=== PATIENT | male | born 1930 | race Caucasian/White ===

== ENCOUNTER → 2016-04-11 | Outpatient (REF) | payer MEDICARE ==
[~2016-04-11] MED LIST: ALBU83IN INH; AMLO5TAB2 PO; CEFT250T8 PO; CIPR500T89 PO; DULC5TAB PO; FINA5TAB2 PO; FINACRY PO; HYDR50TA2 PO; LEVA500T PO; MAALSUS8 PO; NEXI40CA PO; PRAV40TA PO; PRAV40TA2 PO; PYRI200T5 PO; RAMI10CA PO; RAMI25CA PO; SODI1TA PO; SYMB80INH INH; TAMS0.4C2 PO; TUMS500C PO; TYLE325T5 PO; VICO5TAB PO; VITA200016 PO
[2016-04-11 19:19] LABS: PERCENT SATURATION 32.6 % (19.7-37.4)
== END ==
LOC: M LAB REF 16:56
PROVIDERS: ATTEND Internal Medicine Nephrology
DX: D64.9 Anemia, unspecified (principal)

== ENCOUNTER → 2016-11-03 | Outpatient (REF) | payer MEDICARE ==
[~2016-11-03] MED LIST changes: +CIPR-249 PO; -CIPR500T89 PO; +LEVA1TAB2 PO; -LEVA500T PO; +PYRI1TAB5 PO; -PYRI200T5 PO
== END ==
LOC: M LAB REF 15:07
PROVIDERS: ATTEND Physician Assistant
DX: R30.0 Dysuria (principal)

== ENCOUNTER → 2016-11-09 | Outpatient (REF) | payer MEDICARE ==
[2016-11-09 14:13] LABS: OSMOLALITY URINE 384 MOSM/KG (500-800)
== END ==
LOC: M LAB REF 13:23
PROVIDERS: ATTEND Internal Medicine Nephrology
DX: E87.1 Hypo-osmolality and hyponatremia (principal)

== ENCOUNTER → 2017-02-12 | Outpatient (CLI) | payer MEDICARE ==
--- NOTE | 2017-02-12 11:32 | REP ---
Clinical: Chest pain. History of emphysema. Technique: PA and lateral. Comparison: 09/21/2014. 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 No obvious acute superimposed consolidation, effusion, or pneumothorax. Mediastinum and cardiac silhouette are stable and within normal limits. Skeletal structures demonstrate age-related osteopenia and degenerative changes. 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 No acute cardiopulmonary process identified. If the patient remains symptomatic consider chest CT for further investigation. Signed by Marshall Cornelius MD 02/12/2017 11:23 A
== END ==
LOC: M WUC 10:41
PROVIDERS: ATTEND Internal Medicine Pulmonary Disease
DX: J43.2 Centrilobular emphysema (principal)

== ENCOUNTER → 2017-03-01 | Outpatient (CLI) | payer MEDICARE ==
[2017-03-01 18:55] LABS: CALCIUM LEVEL 9.1 MG/DL (8.8-10.2); CREATININE FOR GFR 2.08 MG/DL (0.70-1.30); GLOMERULAR FILTRATION RATE 32.5 (>35); POTASSIUM SERUM 4.6 MEQ/L (3.5-5.1)
[2017-03-01 19:11] LABS: MEAN CORPUSCULAR HGB CONC 33.8 g/dl (32.0-36.5); MEAN CORPUSCULAR VOLUME 94.5 fl (80.0-96.0); PLATELET COUNT, AUTOMATED 164 10^3/uL (150-450); RED CELL DISTRIBUTION WIDTH 12.7 % (11.5-14.5); WHITE BLOOD COUNT 5.6 10^3/uL (4.0-10.0)
== END ==
LOC: M WUC 11:43
PROVIDERS: ATTEND Internal Medicine Cardiovascular Disease
DX: R06.02 Shortness of breath (principal)

== ENCOUNTER 2017-04-04 17:59 | Emergency (ER) | payer MEDICARE ==
[2017-04-04] MEDS: methylPREDNISolone INJ 125 MG/2 ML VIAL (J2930) IV (18:55)
[2017-04-04] MEDS: NS 1,000 ML IV (18:55)
[2017-04-04 18:57] LABS: BASO % 0.2 % (0.0-1.0); EOS # 0.2 10^3/uL (0.0-0.50); EOS % 4.5 % (0.0-3.0); HEMOGLOBIN 12.3 g/dl (14.0-18.0); IMMATURE GRANULOCYTE % 0.4 % (0-0); LYMPH # 0.7 10^3/uL (1.5-4.5); LYMPH % 12.7 % (24.0-44.0); MEAN CORPUSCULAR HEMOGLOBIN 31.9 pg (27.0-33.0); MEAN CORPUSCULAR HGB CONC 34.2 g/dl (32.0-36.5); MEAN CORPUSCULAR VOLUME 93.3 fl (80.0-96.0); MONO # 0.4 10^3/uL (0.0-0.8); MONO % 6.6 % (0.0-5.0); NEUTROPHILS % 75.6 % (36.0-66.0); PLATELET COUNT, AUTOMATED 135 10^3/uL (150-450); RED BLOOD COUNT 3.86 10^6/uL (4.30-6.10); RED CELL DISTRIBUTION WIDTH 13.1 % (11.5-14.5); WHITE BLOOD COUNT 5.3 10^3/uL (4.0-10.0)
[2017-04-04 19:08] LABS: ANION GAP 9 MEQ/L (8-16); BLOOD UREA NITROGEN 25 MG/DL (7-18); CALCIUM LEVEL 8.6 MG/DL (8.8-10.2); CARBON DIOXIDE LEVEL 28 MEQ/L (21-32); CHLORIDE LEVEL 98 MEQ/L (98-107); CPK CREATINE PHOSPHOKINASE 185 U/L (39-308); GLUCOSE, FASTING 113 MG/DL (83-110); POTASSIUM SERUM 3.9 MEQ/L (3.5-5.1); SODIUM LEVEL 135 MEQ/L (136-145); TROPONIN I 0.06 NG/ML (< 0.10)
[2017-04-04 19:09] LABS: CK-MB VALUE MASS 5.5 NG/ML (0.0-3.6); MB/CK RELATIVE INDEX 2.97 (< OR =4)
[2017-04-04] MEDS: IPRATROPIUM 0.5MG/ALBUTEROL 2.5MG INH SOL UD 3ML (DUONEB)(J7620) NEB ×2 (19:13→19:23)
[2017-04-04 19:27] LABS: ABG BASE EXCESS -2.1 (-2.0-2.0); ABG HCO3 21.7 MEQ/L (22.0-26.0); ABG O2 SATURATION 97.3 % (95.0-99.0); ABG PARTIAL PRESSURE CO2 34.3 mmHg (35.0-45.0); ABG PARTIAL PRESSURE O2 95.5 mmHg (75.0-100.0); ABG STANDARD HCO3 22.7 MEQ/L (22.0-26.0); ABG TOTAL CO2 22.8 MEQ/L (23.0-31.0); ALBUMIN 3.4 GM/DL (3.2-5.2); ALBUMIN/GLOBULIN RATIO 1.13 (1.00-1.93); ALKALINE PHOSPHATASE 80 U/L (45-117); ALT/SGPT 27 U/L (12-78); AST/SGOT 39 U/L (7-37); BILIRUBIN,DIRECT 0.2 MG/DL (0.0-0.2); BILIRUBIN,TOTAL 0.5 MG/DL (0.2-1.0); TOTAL PROTEIN 6.4 GM/DL (6.4-8.2)
== END 2017-04-04 20:29 | disposition home or self-care (01) ==
LOC: M ED 17:59
DX: J44.1 Chronic obstructive pulmonary disease with (acute) exacerbation (principal); I45.10 Unspecified right bundle-branch block; I44.0 Atrioventricular block, first degree; I10 Essential (primary) hypertension; E78.5 Hyperlipidemia, unspecified; N18.6 End stage renal disease; Z87.891 Personal history of nicotine dependence; Z82.49 Family history of ischemic heart disease and other diseases of the circulatory system; Z79.899 Other long term (current) drug therapy
CPT/HCPCS: J2930

== ENCOUNTER 2017-04-12 12:58 | Inpatient (IN) | payer MEDICARE ==
[2017-04-12] MEDS: NS 1,000 ML IV (13:17)
[2017-04-12] MEDS: IPRATROPIUM 0.5MG/ALBUTEROL 2.5MG INH SOL UD 3ML (DUONEB)(J7620) NEB ×5 (14:12→23:51)
[2017-04-12 14:43] LABS: BASO % 0.1 % (0.0-1.0); HEMATOCRIT 40.1 % (42.0-52.0); HEMOGLOBIN 13.4 g/dl (14.0-18.0); IMMATURE GRANULOCYTE # 0.1 10^3/uL (0-0); IMMATURE GRANULOCYTE % 0.7 % (0-0); LYMPH # 0.4 10^3/uL (1.5-4.5); LYMPH % 3.2 % (24.0-44.0); MEAN CORPUSCULAR HGB CONC 33.4 g/dl (32.0-36.5); MEAN CORPUSCULAR VOLUME 95.7 fl (80.0-96.0); MONO # 0.5 10^3/uL (0.0-0.8); MONO % 3.8 % (0.0-5.0); NEUTROPHILS # 11.5 10^3/uL (1.8-7.7); NEUTROPHILS % 92.2 % (36.0-66.0); PLATELET COUNT, AUTOMATED 152 10^3/uL (150-450); RED BLOOD COUNT 4.19 10^6/uL (4.30-6.10); RED CELL DISTRIBUTION WIDTH 14.2 % (11.5-14.5); WHITE BLOOD COUNT 12.5 10^3/uL (4.0-10.0)
[2017-04-12 14:51] LABS: VENOUS BASE EXCESS -0.8 (-2.0-2.0); VENOUS HCO3 25.3 MEQ/L (23.0-27.0); VENOUS O2 SATURATION 84.3 % (60.0-80.0); VENOUS PARTIAL PRESSURE CO2 47.3 mmHg (38.0-50.0); VENOUS PARTIAL PRESSURE O2 52.4 mmHg (30.0-50.0); VENOUS PH 7.346 UNITS (7.330-7.430); VENOUS STANDARD HCO3 23.5 MEQ/L; VENOUS TOTAL CO2 26.7 MEQ/L (24.0-28.0)
[2017-04-12 14:54] LABS: INR 1.07
[2017-04-12 15:25] LABS: ALBUMIN 3.5 GM/DL (3.2-5.2); ALBUMIN/GLOBULIN RATIO 1.21 (1.00-1.93); ALKALINE PHOSPHATASE 71 U/L (45-117); ALT/SGPT 58 U/L (12-78); AST/SGOT 42 U/L (7-37); BILIRUBIN,DIRECT 0.5 MG/DL (0.0-0.2); BILIRUBIN,TOTAL 1.1 MG/DL (0.2-1.0); TOTAL PROTEIN 6.4 GM/DL (6.4-8.2)
[2017-04-12 15:28] LABS: ANION GAP 8 MEQ/L (8-16); BLOOD UREA NITROGEN 47 MG/DL (7-18); CALCIUM LEVEL 8.8 MG/DL (8.8-10.2); CARBON DIOXIDE LEVEL 30 MEQ/L (21-32); CHLORIDE LEVEL 103 MEQ/L (98-107); CK-MB VALUE MASS 9.3 NG/ML (0.0-3.6); CPK CREATINE PHOSPHOKINASE 157 U/L (39-308); CREATININE FOR GFR 2.25 MG/DL (0.70-1.30); GLOMERULAR FILTRATION RATE 29.6 (>35); GLUCOSE, FASTING 179 MG/DL (83-110); MB/CK RELATIVE INDEX 5.92 (< OR =4); SODIUM LEVEL 141 MEQ/L (136-145); TROPONIN I 0.12 NG/ML (< 0.10)
[2017-04-12 15:44] LABS: LACTIC ACID SEPSIS PROTOCOL 2.5 MMOL/L (0.4-2.0)
[2017-04-12] MEDS ORDERED: LABETALOL HCL 100 MG/20 ML VIAL IV (16:31)
[2017-04-12] MEDS: ALBUTEROL SULFATE 2.5 MG/0.5 ML INH NEB SOLN INH (16:37)
[2017-04-12] MEDS: methylPREDNISolone INJ 125 MG/2 ML VIAL (J2930) IV (16:57)
[2017-04-12] MEDS ORDERED: ONDANSETRON 4MG/2ML VIAL (J2405) IV (19:30)
[2017-04-12 19:41] LABS: CK-MB VALUE MASS 8.2 NG/ML (0.0-3.6); CPK CREATINE PHOSPHOKINASE 140 U/L (39-308); MB/CK RELATIVE INDEX 5.85 (< OR =4); TROPONIN I 0.11 NG/ML (< 0.10)
[2017-04-12] MEDS: DIGOXIN INJ 0.5 MG/2 ML AMP (J1160) IV (19:52)
[2017-04-12] MEDS: TAMSULOSIN 0.4 MG CAP PO (23:03)
[2017-04-12] MEDS: APIXABAN 2.5 MG TAB (ELIQUIS) PO (23:04)
[2017-04-12] MEDS: FINASTERIDE 5 MG TAB PO (23:04)
[2017-04-12] MEDS: PRAVASTATIN 20 MG TAB PO (23:04)
[2017-04-12] MEDS: guaiFENesin ER 600 MG TAB PO (23:04)
[2017-04-12 23:39] LABS: CK-MB VALUE MASS 7.7 NG/ML (0.0-3.6); CPK CREATINE PHOSPHOKINASE 139 U/L (39-308); MB/CK RELATIVE INDEX 5.53 (< OR =4); TROPONIN I 0.12 NG/ML (< 0.10)
[2017-04-13] MEDS: methylPREDNISolone INJ 40 MG/1 ML VIAL (J2920) IV ×3 (00:19→17:19)
[2017-04-13] MEDS: IPRATROPIUM 0.5MG/ALBUTEROL 2.5MG INH SOL UD 3ML (DUONEB)(J7620) NEB ×5 (03:30→19:58)
[2017-04-13] MEDS: LEVOTHYROXINE 25MCG TABLET (0.025MG) PO (06:15)
[2017-04-13] MEDS: APIXABAN 2.5 MG TAB (ELIQUIS) PO ×2 (08:22→20:26)
[2017-04-13] MEDS: VITAMIN D 1,000 INTERNATIONAL UNITS TABLET PO (08:22)
[2017-04-13] MEDS: amLODIPine 5 MG TAB PO (08:23)
[2017-04-13] MEDS: guaiFENesin ER 600 MG TAB PO ×2 (08:23→20:26)
[2017-04-13 08:40] LABS: BASO % 0.1 % (0.0-1.0); HEMATOCRIT 37.2 % (42.0-52.0); HEMOGLOBIN 12.3 g/dl (14.0-18.0); IMMATURE GRANULOCYTE # 0.1 10^3/uL (0-0); IMMATURE GRANULOCYTE % 0.6 % (0-0); MEAN CORPUSCULAR HEMOGLOBIN 31.5 pg (27.0-33.0); MEAN CORPUSCULAR HGB CONC 33.1 g/dl (32.0-36.5); MEAN CORPUSCULAR VOLUME 95.1 fl (80.0-96.0); MONO # 0.1 10^3/uL (0.0-0.8); MONO % 1.1 % (0.0-5.0); NEUTROPHILS # 10.6 10^3/uL (1.8-7.7); NEUTROPHILS % 96.2 % (36.0-66.0); PLATELET COUNT, AUTOMATED 127 10^3/uL (150-450); RED BLOOD COUNT 3.91 10^6/uL (4.30-6.10); RED CELL DISTRIBUTION WIDTH 14.1 % (11.5-14.5)
[2017-04-13 08:45] LABS: LYMPH # 0.2 10^3/uL (1.5-4.5)
[2017-04-13 08:46] LABS: POSITIVE DIFF POS FLAG
[2017-04-13 09:03] LABS: ANION GAP 8 MEQ/L (8-16); BLOOD UREA NITROGEN 53 MG/DL (7-18); CALCIUM LEVEL 8.6 MG/DL (8.8-10.2); CARBON DIOXIDE LEVEL 30 MEQ/L (21-32); CHLORIDE LEVEL 104 MEQ/L (98-107); CK-MB VALUE MASS 11.1 NG/ML (0.0-3.6); CPK CREATINE PHOSPHOKINASE 220 U/L (39-308); CREATININE FOR GFR 2.23 MG/DL (0.70-1.30); GLOMERULAR FILTRATION RATE 29.9 (>35); GLUCOSE, FASTING 125 MG/DL (83-110); MAGNESIUM LEVEL 2.2 MG/DL (1.8-2.4); MB/CK RELATIVE INDEX 5.04 (< OR =4); SODIUM LEVEL 142 MEQ/L (136-145)
[2017-04-13 16:10] LABS: CK-MB VALUE MASS 9.2 NG/ML (0.0-3.6); CPK CREATINE PHOSPHOKINASE 207 U/L (39-308); MB/CK RELATIVE INDEX 4.44 (< OR =4); TROPONIN I 0.09 NG/ML (< 0.10)
[2017-04-13] MEDS: TAMSULOSIN 0.4 MG CAP PO (20:25)
[2017-04-13] MEDS: FINASTERIDE 5 MG TAB PO (20:25)
[2017-04-13] MEDS: PRAVASTATIN 20 MG TAB PO (20:25)
[2017-04-13] MEDS: DOCUSATE SODIUM 100 MG CAP PO (20:26)
[2017-04-14] MEDS: IPRATROPIUM 0.5MG/ALBUTEROL 2.5MG INH SOL UD 3ML (DUONEB)(J7620) NEB ×6 (00:42→23:18)
[2017-04-14] MEDS: methylPREDNISolone INJ 40 MG/1 ML VIAL (J2920) IV (02:23)
[2017-04-14] MEDS: LEVOTHYROXINE 25MCG TABLET (0.025MG) PO (05:56)
[2017-04-14 07:16] LABS: BASO % 0.1 % (0.0-1.0); HEMATOCRIT 35.2 % (42.0-52.0); HEMOGLOBIN 11.9 g/dl (14.0-18.0); IMMATURE GRANULOCYTE # 0.2 10^3/uL (0-0); IMMATURE GRANULOCYTE % 1.6 % (0-0); LYMPH % 1.3 % (24.0-44.0); MEAN CORPUSCULAR HEMOGLOBIN 31.8 pg (27.0-33.0); MEAN CORPUSCULAR HGB CONC 33.8 g/dl (32.0-36.5); MEAN CORPUSCULAR VOLUME 94.1 fl (80.0-96.0); MONO # 0.3 10^3/uL (0.0-0.8); MONO % 2.2 % (0.0-5.0); NEUTROPHILS # 13.2 10^3/uL (1.8-7.7); NEUTROPHILS % 94.8 % (36.0-66.0); PLATELET COUNT, AUTOMATED 135 10^3/uL (150-450); RED BLOOD COUNT 3.74 10^6/uL (4.30-6.10); RED CELL DISTRIBUTION WIDTH 14.2 % (11.5-14.5)
[2017-04-14 07:18] LABS: LYMPH # 0.2 10^3/uL (1.5-4.5); POSITIVE DIFF POS FLAG
[2017-04-14] MEDS ORDERED: IPRATROPIUM 0.5MG/ALBUTEROL 2.5MG INH SOL UD 3ML (DUONEB)(J7620) NEB (08:00)
[2017-04-14 08:27] LABS: ANION GAP 8 MEQ/L (8-16); BLOOD UREA NITROGEN 66 MG/DL (7-18); CALCIUM LEVEL 8.9 MG/DL (8.8-10.2); CARBON DIOXIDE LEVEL 28 MEQ/L (21-32); CHLORIDE LEVEL 103 MEQ/L (98-107); CK-MB VALUE MASS 10.6 NG/ML (0.0-3.6); CPK CREATINE PHOSPHOKINASE 232 U/L (39-308); CREATININE FOR GFR 2.47 MG/DL (0.70-1.30); GLOMERULAR FILTRATION RATE 26.6 (>35); GLUCOSE, FASTING 132 MG/DL (83-110); MAGNESIUM LEVEL 2.5 MG/DL (1.8-2.4); MB/CK RELATIVE INDEX 4.56 (< OR =4); SODIUM LEVEL 139 MEQ/L (136-145)
[2017-04-14] MEDS: VITAMIN D 1,000 INTERNATIONAL UNITS TABLET PO (08:43)
[2017-04-14] MEDS: guaiFENesin ER 600 MG TAB PO ×2 (08:44→20:39)
[2017-04-14] MEDS: methylPREDNISolone INJ 125 MG/2 ML VIAL (J2930) IV ×3 (08:44→20:39)
[2017-04-14] MEDS: APIXABAN 2.5 MG TAB (ELIQUIS) PO ×2 (08:44→20:39)
[2017-04-14] MEDS: TAMSULOSIN 0.4 MG CAP PO (20:39)
[2017-04-14] MEDS: FINASTERIDE 5 MG TAB PO (20:39)
[2017-04-14] MEDS: PRAVASTATIN 20 MG TAB PO (20:39)
[2017-04-15] MEDS: methylPREDNISolone INJ 125 MG/2 ML VIAL (J2930) IV ×4 (02:43→20:08)
[2017-04-15] MEDS: IPRATROPIUM 0.5MG/ALBUTEROL 2.5MG INH SOL UD 3ML (DUONEB)(J7620) NEB ×5 (03:15→20:41)
[2017-04-15] MEDS: LEVOTHYROXINE 25MCG TABLET (0.025MG) PO (05:32)
[2017-04-15 05:45] LABS: BASO % 0.1 % (0.0-1.0); HEMOGLOBIN 11.9 g/dl (14.0-18.0); IMMATURE GRANULOCYTE # 0.1 10^3/uL (0-0); IMMATURE GRANULOCYTE % 0.8 % (0-0); LYMPH % 0.8 % (24.0-44.0); MEAN CORPUSCULAR HEMOGLOBIN 32.1 pg (27.0-33.0); MEAN CORPUSCULAR VOLUME 94.3 fl (80.0-96.0); MONO # 0.3 10^3/uL (0.0-0.8); MONO % 2.4 % (0.0-5.0); NEUTROPHILS # 11.6 10^3/uL (1.8-7.7); NEUTROPHILS % 95.9 % (36.0-66.0); PLATELET COUNT, AUTOMATED 114 10^3/uL (150-450); RED BLOOD COUNT 3.71 10^6/uL (4.30-6.10); RED CELL DISTRIBUTION WIDTH 14.3 % (11.5-14.5); WHITE BLOOD COUNT 12.1 10^3/uL (4.0-10.0)
[2017-04-15 05:48] LABS: LYMPH # 0.1 10^3/uL (1.5-4.5)
[2017-04-15 05:49] LABS: POSITIVE DIFF POS FLAG
[2017-04-15 06:06] LABS: ANION GAP 9 MEQ/L (8-16); BLOOD UREA NITROGEN 75 MG/DL (7-18); CARBON DIOXIDE LEVEL 28 MEQ/L (21-32); CHLORIDE LEVEL 102 MEQ/L (98-107); CREATININE FOR GFR 2.62 MG/DL (0.70-1.30); GLOMERULAR FILTRATION RATE 24.8 (>35); GLUCOSE, FASTING 144 MG/DL (83-110); MAGNESIUM LEVEL 2.4 MG/DL (1.8-2.4); POTASSIUM SERUM 3.8 MEQ/L (3.5-5.1); SODIUM LEVEL 139 MEQ/L (136-145)
[2017-04-15 07:57] LABS: NT-PRO BNP 24917 PG/ML (<450)
[2017-04-15] MEDS: VITAMIN D 1,000 INTERNATIONAL UNITS TABLET PO (09:50)
[2017-04-15] MEDS: APIXABAN 2.5 MG TAB (ELIQUIS) PO ×2 (09:50→20:09)
[2017-04-15] MEDS: guaiFENesin ER 600 MG TAB PO ×2 (09:50→20:08)
[2017-04-15] MEDS: NS 1,000 ML IV (14:46)
[2017-04-15] MEDS: PRAVASTATIN 20 MG TAB PO (20:08)
[2017-04-15] MEDS: FINASTERIDE 5 MG TAB PO (20:08)
[2017-04-15] MEDS: TAMSULOSIN 0.4 MG CAP PO (20:09)
[2017-04-15 21:03] LABS: APPEARANCE, URINE CLEAR (CLEAR); BACTERIA, URINE AUTO NEGATIVE (NEGATIVE); BILIRUBIN, URINE AUTO NEGATIVE (NEGATIVE); BLOOD, URINE BLOOD 1+ (NEGATIVE); COLOR, URINE YELLOW (YELLOW); GLUCOSE, URINE (UA) AUTO NEGATIVE (NEGATIVE); KETONE, URINE AUTO NEGATIVE (NEGATIVE); LEUKOCYTE ESTERASE, URINE AUTO NEGATIVE (NEGATIVE); NITRITE, URINE AUTO NEGATIVE (NEGATIVE); PROTEIN, URINE AUTO 2+ mg/dL (NEGATIVE); RBC, URINE AUTO 7 /HPF (0-3); SQUAMOUS EPITHELIAL CELL UR AU 3 /HPF (0-6); UROBILINOGEN, URINE AUTO 0.2 mg/dL (0.0-2.0); WBC, URINE AUTO 2 /HPF (0-3)
[2017-04-15 21:23] LABS: CHLORIDE,RANDOM URINE < 10 MEQ/L; SODIUM,RANDOM URINE < 10 MEQ/L
[2017-04-16] MEDS: IPRATROPIUM 0.5MG/ALBUTEROL 2.5MG INH SOL UD 3ML (DUONEB)(J7620) NEB ×6 (00:19→20:00)
[2017-04-16] MEDS: methylPREDNISolone INJ 125 MG/2 ML VIAL (J2930) IV (02:20)
[2017-04-16] MEDS: LEVOTHYROXINE 25MCG TABLET (0.025MG) PO (05:45)
[2017-04-16 06:50] LABS: CHLORIDE LEVEL 103 MEQ/L (98-107); SODIUM LEVEL 139 MEQ/L (136-145)
[2017-04-16 06:52] LABS: ANION GAP 9 MEQ/L (8-16); BLOOD UREA NITROGEN 78 MG/DL (7-18); CALCIUM LEVEL 8.3 MG/DL (8.8-10.2); CARBON DIOXIDE LEVEL 27 MEQ/L (21-32); GLUCOSE, FASTING 155 MG/DL (83-110); MAGNESIUM LEVEL 2.4 MG/DL (1.8-2.4)
[2017-04-16 06:55] LABS: CREATININE FOR GFR 2.53 MG/DL (0.70-1.30); GLOMERULAR FILTRATION RATE 25.8 (>35); HEMATOCRIT 35.5 % (42.0-52.0); HEMOGLOBIN 12.2 g/dl (14.0-18.0); IMMATURE GRANULOCYTE # 0.1 10^3/uL (0-0); IMMATURE GRANULOCYTE % 0.7 % (0-0); LYMPH % 0.6 % (24.0-44.0); MEAN CORPUSCULAR HEMOGLOBIN 32.2 pg (27.0-33.0); MEAN CORPUSCULAR HGB CONC 34.4 g/dl (32.0-36.5); MEAN CORPUSCULAR VOLUME 93.7 fl (80.0-96.0); MONO # 0.3 10^3/uL (0.0-0.8); MONO % 2.3 % (0.0-5.0); NEUTROPHILS # 10.7 10^3/uL (1.8-7.7); NEUTROPHILS % 96.4 % (36.0-66.0); PLATELET COUNT, AUTOMATED 106 10^3/uL (150-450); RED BLOOD COUNT 3.79 10^6/uL (4.30-6.10); RED CELL DISTRIBUTION WIDTH 14.4 % (11.5-14.5); WHITE BLOOD COUNT 11.1 10^3/uL (4.0-10.0)
[2017-04-16 07:03] LABS: LYMPH # 0.1 10^3/uL (1.5-4.5); POSITIVE DIFF POS FLAG
[2017-04-16] MEDS: guaiFENesin ER 600 MG TAB PO ×2 (09:40→21:59)
[2017-04-16] MEDS: methylPREDNISolone INJ 40 MG/1 ML VIAL (J2920) IV ×2 (09:40→16:03)
[2017-04-16] MEDS: APIXABAN 2.5 MG TAB (ELIQUIS) PO ×2 (09:41→22:00)
[2017-04-16] MEDS: VITAMIN D 1,000 INTERNATIONAL UNITS TABLET PO (09:41)
[2017-04-16] MEDS: NS 1,000 ML IV ×2 (09:41→17:45)
[2017-04-16] MEDS: SYMBICORT 80/4.5MCG INHALER 6GM INH (20:13)
[2017-04-16] MEDS: PRAVASTATIN 20 MG TAB PO (21:59)
[2017-04-16] MEDS: TAMSULOSIN 0.4 MG CAP PO (21:59)
[2017-04-16] MEDS: FINASTERIDE 5 MG TAB PO (21:59)
[2017-04-17] MEDS: methylPREDNISolone INJ 40 MG/1 ML VIAL (J2920) IV ×3 (00:10→16:52)
[2017-04-17] MEDS: IPRATROPIUM 0.5MG/ALBUTEROL 2.5MG INH SOL UD 3ML (DUONEB)(J7620) NEB ×5 (01:02→23:03)
[2017-04-17] MEDS: LEVOTHYROXINE 25MCG TABLET (0.025MG) PO (05:32)
[2017-04-17 06:30] LABS: HEMATOCRIT 34.9 % (42.0-52.0); HEMOGLOBIN 11.9 g/dl (14.0-18.0); IMMATURE GRANULOCYTE # 0.1 10^3/uL (0-0); IMMATURE GRANULOCYTE % 0.6 % (0-0); LYMPH % 0.9 % (24.0-44.0); MEAN CORPUSCULAR HGB CONC 34.1 g/dl (32.0-36.5); MEAN CORPUSCULAR VOLUME 93.8 fl (80.0-96.0); MONO # 0.3 10^3/uL (0.0-0.8); MONO % 2.4 % (0.0-5.0); NEUTROPHILS # 10.4 10^3/uL (1.8-7.7); NEUTROPHILS % 96.1 % (36.0-66.0); RED BLOOD COUNT 3.72 10^6/uL (4.30-6.10); RED CELL DISTRIBUTION WIDTH 14.3 % (11.5-14.5); WHITE BLOOD COUNT 10.8 10^3/uL (4.0-10.0)
[2017-04-17 06:35] LABS: ANION GAP 8 MEQ/L (8-16); BLOOD UREA NITROGEN 77 MG/DL (7-18); CALCIUM LEVEL 8.4 MG/DL (8.8-10.2); CARBON DIOXIDE LEVEL 26 MEQ/L (21-32); CHLORIDE LEVEL 106 MEQ/L (98-107); CREATININE FOR GFR 2.42 MG/DL (0.70-1.30); GLOMERULAR FILTRATION RATE 27.2 (>35); GLUCOSE, FASTING 141 MG/DL (83-110); MAGNESIUM LEVEL 2.4 MG/DL (1.8-2.4); POTASSIUM SERUM 3.9 MEQ/L (3.5-5.1); SODIUM LEVEL 140 MEQ/L (136-145)
[2017-04-17 06:59] LABS: LYMPH # 0.1 10^3/uL (1.5-4.5); PLATELET COUNT, AUTOMATED 92 10^3/uL (150-450); POSITIVE DIFF POS FLAG
[2017-04-17 07:00] LABS: IMMATURE PLATELET FRACTION % 3.4 % (0.0-10.9)
[2017-04-17] MEDS: SYMBICORT 80/4.5MCG INHALER 6GM INH (07:20)
[2017-04-17] MEDS: APIXABAN 2.5 MG TAB (ELIQUIS) PO ×2 (08:36→20:34)
[2017-04-17] MEDS: guaiFENesin ER 600 MG TAB PO ×2 (08:36→20:33)
[2017-04-17] MEDS: VITAMIN D 1,000 INTERNATIONAL UNITS TABLET PO (08:36)
[2017-04-17] MEDS: MAG SULF 1GM/100ML (MAG RUN) 1 GM in APPROPRIATE DILUENT 1 EA IV (11:33)
[2017-04-17] MEDS: CEFTRIAXONE SOD 1 GM in APPROPRIATE DILUENT 1 EA IV (12:51)
[2017-04-17] MEDS: AZITHROMYCIN 250 MG TAB PO (16:52)
[2017-04-17] MEDS: ALBUTEROL SULFATE 2.5 MG/0.5 ML INH NEB SOLN INH (17:47)
[2017-04-17] MEDS: TAMSULOSIN 0.4 MG CAP PO (20:33)
[2017-04-17] MEDS: ACETAMINOPHEN TAB 650MG DOSE (2X325MG) PO (20:33)
[2017-04-17] MEDS: FINASTERIDE 5 MG TAB PO (20:34)
[2017-04-17] MEDS: PRAVASTATIN 20 MG TAB PO (20:34)
[2017-04-17] MEDS: FORMOTEROL FUMARATE 20 MCG/2 ML INHALATION SOLUTION (PERFOROMIST) INH (23:03)
[2017-04-17] MEDS: BUDESONIDE 0.5 MG/2 ML INHALATION SUSPENSION INH (23:03)
[2017-04-18] MEDS: methylPREDNISolone INJ 40 MG/1 ML VIAL (J2920) IV (00:03)
[2017-04-18] MEDS: IPRATROPIUM 0.5MG/ALBUTEROL 2.5MG INH SOL UD 3ML (DUONEB)(J7620) NEB ×4 (02:00→20:00)
[2017-04-18] MEDS: RAMELTEON 8 MG TAB (ROZEREM) PO ×2 (04:15→22:02)
[2017-04-18] MEDS: LEVOTHYROXINE 25MCG TABLET (0.025MG) PO (05:36)
[2017-04-18 06:46] LABS: HEMATOCRIT 36.4 % (42.0-52.0); HEMOGLOBIN 12.2 g/dl (14.0-18.0); IMMATURE GRANULOCYTE % 0.3 % (0-0); LYMPH % 0.6 % (24.0-44.0); MEAN CORPUSCULAR HEMOGLOBIN 31.4 pg (27.0-33.0); MEAN CORPUSCULAR HGB CONC 33.5 g/dl (32.0-36.5); MEAN CORPUSCULAR VOLUME 93.6 fl (80.0-96.0); MONO # 0.3 10^3/uL (0.0-0.8); MONO % 2.2 % (0.0-5.0); NEUTROPHILS # 11.1 10^3/uL (1.8-7.7); NEUTROPHILS % 96.9 % (36.0-66.0); RED BLOOD COUNT 3.89 10^6/uL (4.30-6.10); RED CELL DISTRIBUTION WIDTH 14.3 % (11.5-14.5); WHITE BLOOD COUNT 11.4 10^3/uL (4.0-10.0)
[2017-04-18 06:50] LABS: LYMPH # 0.1 10^3/uL (1.5-4.5); PLATELET COUNT, AUTOMATED 82 10^3/uL (150-450); POSITIVE DIFF POS FLAG
[2017-04-18 06:52] LABS: IMMATURE PLATELET FRACTION % 4.3 % (0.0-10.9)
[2017-04-18 07:08] LABS: ANION GAP 9 MEQ/L (8-16); BLOOD UREA NITROGEN 82 MG/DL (7-18); CALCIUM LEVEL 8.7 MG/DL (8.8-10.2); CARBON DIOXIDE LEVEL 27 MEQ/L (21-32); CHLORIDE LEVEL 108 MEQ/L (98-107); CREATININE FOR GFR 2.38 MG/DL (0.70-1.30); GLOMERULAR FILTRATION RATE 27.7 (>35); GLUCOSE, FASTING 149 MG/DL (83-110); MAGNESIUM LEVEL 2.7 MG/DL (1.8-2.4); POTASSIUM SERUM 3.9 MEQ/L (3.5-5.1); SODIUM LEVEL 144 MEQ/L (136-145)
[2017-04-18] MEDS: BUDESONIDE 0.5 MG/2 ML INHALATION SUSPENSION INH ×2 (08:45→20:19)
[2017-04-18] MEDS: FORMOTEROL FUMARATE 20 MCG/2 ML INHALATION SOLUTION (PERFOROMIST) INH ×2 (08:45→20:19)
[2017-04-18] MEDS: predniSONE 20 MG TAB PO (10:35)
[2017-04-18] MEDS: guaiFENesin ER 600 MG TAB PO ×2 (10:35→22:02)
[2017-04-18] MEDS: VITAMIN D 1,000 INTERNATIONAL UNITS TABLET PO (10:35)
[2017-04-18] MEDS: APIXABAN 2.5 MG TAB (ELIQUIS) PO ×2 (10:35→22:02)
[2017-04-18] MEDS: AZITHROMYCIN 250 MG TAB PO (10:35)
[2017-04-18] MEDS: CEFTRIAXONE SOD 1 GM in APPROPRIATE DILUENT 1 EA IV (12:27)
[2017-04-18] MEDS: D5W 1,000 ML IV (12:28)
[2017-04-18] MEDS: PRAVASTATIN 20 MG TAB PO (22:02)
[2017-04-18] MEDS: FINASTERIDE 5 MG TAB PO (22:02)
[2017-04-18] MEDS: TAMSULOSIN 0.4 MG CAP PO (22:02)
[2017-04-19] MEDS: IPRATROPIUM 0.5MG/ALBUTEROL 2.5MG INH SOL UD 3ML (DUONEB)(J7620) NEB ×4 (01:45→20:00)
[2017-04-19] MEDS: LEVOTHYROXINE 25MCG TABLET (0.025MG) PO (06:04)
[2017-04-19 06:05] LABS: BASO % 0.1 % (0.0-1.0); HEMATOCRIT 36.3 % (42.0-52.0); HEMOGLOBIN 12.2 g/dl (14.0-18.0); IMMATURE GRANULOCYTE # 0.1 10^3/uL (0-0); IMMATURE GRANULOCYTE % 0.5 % (0-0); LYMPH % 0.9 % (24.0-44.0); MEAN CORPUSCULAR HEMOGLOBIN 31.7 pg (27.0-33.0); MEAN CORPUSCULAR HGB CONC 33.6 g/dl (32.0-36.5); MEAN CORPUSCULAR VOLUME 94.3 fl (80.0-96.0); MONO # 0.3 10^3/uL (0.0-0.8); NEUTROPHILS # 12.4 10^3/uL (1.8-7.7); NEUTROPHILS % 96.5 % (36.0-66.0); RED BLOOD COUNT 3.85 10^6/uL (4.30-6.10); RED CELL DISTRIBUTION WIDTH 14.3 % (11.5-14.5); WHITE BLOOD COUNT 12.8 10^3/uL (4.0-10.0)
[2017-04-19 06:08] LABS: LYMPH # 0.1 10^3/uL (1.5-4.5); PLATELET COUNT, AUTOMATED 77 10^3/uL (150-450); POSITIVE DIFF POS FLAG
[2017-04-19 06:23] LABS: ANION GAP 8 MEQ/L (8-16); BLOOD UREA NITROGEN 84 MG/DL (7-18); CALCIUM LEVEL 8.7 MG/DL (8.8-10.2); CARBON DIOXIDE LEVEL 26 MEQ/L (21-32); CHLORIDE LEVEL 110 MEQ/L (98-107); CREATININE FOR GFR 2.04 MG/DL (0.70-1.30); GLOMERULAR FILTRATION RATE 33.1 (>35); GLUCOSE, FASTING 155 MG/DL (83-110); MAGNESIUM LEVEL 2.6 MG/DL (1.8-2.4); POTASSIUM SERUM 3.9 MEQ/L (3.5-5.1); SODIUM LEVEL 144 MEQ/L (136-145)
[2017-04-19] MEDS: BUDESONIDE 0.5 MG/2 ML INHALATION SUSPENSION INH ×2 (08:07→20:09)
[2017-04-19] MEDS: FORMOTEROL FUMARATE 20 MCG/2 ML INHALATION SOLUTION (PERFOROMIST) INH ×2 (08:08→20:09)
[2017-04-19] MEDS: guaiFENesin ER 600 MG TAB PO ×2 (09:23→20:30)
[2017-04-19] MEDS: AZITHROMYCIN 250 MG TAB PO (09:24)
[2017-04-19] MEDS: predniSONE 20 MG TAB PO (09:24)
[2017-04-19] MEDS: APIXABAN 2.5 MG TAB (ELIQUIS) PO ×2 (09:24→21:00)
[2017-04-19] MEDS: VITAMIN D 1,000 INTERNATIONAL UNITS TABLET PO (09:24)
[2017-04-19] MEDS: CEFTRIAXONE SOD 1 GM in APPROPRIATE DILUENT 1 EA IV (11:22)
[2017-04-19] MEDS: PRAVASTATIN 20 MG TAB PO (20:30)
[2017-04-19] MEDS: TAMSULOSIN 0.4 MG CAP PO (20:30)
[2017-04-19] MEDS: RAMELTEON 8 MG TAB (ROZEREM) PO (20:31)
[2017-04-19] MEDS: FINASTERIDE 5 MG TAB PO (20:31)
[2017-04-19] MEDS: ACETAMINOPHEN TAB 650MG DOSE (2X325MG) PO (20:32)
[2017-04-20] MEDS: IPRATROPIUM 0.5MG/ALBUTEROL 2.5MG INH SOL UD 3ML (DUONEB)(J7620) NEB ×4 (02:16→20:00)
[2017-04-20] MEDS: LEVOTHYROXINE 25MCG TABLET (0.025MG) PO (06:11)
[2017-04-20] MEDS: BUDESONIDE 0.5 MG/2 ML INHALATION SUSPENSION INH ×2 (07:30→21:01)
[2017-04-20] MEDS: FORMOTEROL FUMARATE 20 MCG/2 ML INHALATION SOLUTION (PERFOROMIST) INH ×2 (07:30→21:01)
[2017-04-20] MEDS: VITAMIN D 1,000 INTERNATIONAL UNITS TABLET PO (09:09)
[2017-04-20] MEDS: guaiFENesin ER 600 MG TAB PO ×2 (09:10→21:32)
[2017-04-20] MEDS: AZITHROMYCIN 250 MG TAB PO (09:10)
[2017-04-20] MEDS: APIXABAN 2.5 MG TAB (ELIQUIS) PO ×2 (09:10→21:32)
[2017-04-20] MEDS: predniSONE 20 MG TAB PO (09:10)
[2017-04-20] MEDS: CEFTRIAXONE SOD 1 GM in APPROPRIATE DILUENT 1 EA IV (12:12)
[2017-04-20] MEDS: PRAVASTATIN 20 MG TAB PO (21:32)
[2017-04-20] MEDS: TAMSULOSIN 0.4 MG CAP PO (21:32)
[2017-04-20] MEDS: RAMELTEON 8 MG TAB (ROZEREM) PO (21:32)
[2017-04-20] MEDS: FINASTERIDE 5 MG TAB PO (21:32)
[2017-04-21] MEDS: IPRATROPIUM 0.5MG/ALBUTEROL 2.5MG INH SOL UD 3ML (DUONEB)(J7620) NEB ×4 (02:00→20:56)
[2017-04-21] MEDS: LEVOTHYROXINE 25MCG TABLET (0.025MG) PO (05:49)
[2017-04-21 06:13] LABS: HEMATOCRIT 35.5 % (42.0-52.0); HEMOGLOBIN 11.8 g/dl (14.0-18.0); MEAN CORPUSCULAR HEMOGLOBIN 31.7 pg (27.0-33.0); MEAN CORPUSCULAR HGB CONC 33.2 g/dl (32.0-36.5); MEAN CORPUSCULAR VOLUME 95.4 fl (80.0-96.0); RED BLOOD COUNT 3.72 10^6/uL (4.30-6.10); RED CELL DISTRIBUTION WIDTH 14.2 % (11.5-14.5); WHITE BLOOD COUNT 11.6 10^3/uL (4.0-10.0)
[2017-04-21 06:16] LABS: PLATELET COUNT, AUTOMATED 71 10^3/uL (150-450)
[2017-04-21 06:17] LABS: IMMATURE PLATELET FRACTION % 5.1 % (0.0-10.9)
[2017-04-21 06:27] LABS: ALBUMIN 1.9 GM/DL (3.2-5.2); ANION GAP 9 MEQ/L (8-16); BLOOD UREA NITROGEN 90 MG/DL (7-18); CALCIUM LEVEL 8.4 MG/DL (8.8-10.2); CARBON DIOXIDE LEVEL 22 MEQ/L (21-32); CHLORIDE LEVEL 112 MEQ/L (98-107); GLOMERULAR FILTRATION RATE 33.9 (>35); GLUCOSE, FASTING 126 MG/DL (83-110); PHOSPHORUS LEVEL 3.7 MG/DL (2.5-4.9); POTASSIUM SERUM 4.8 MEQ/L (3.5-5.1); SODIUM LEVEL 143 MEQ/L (136-145)
[2017-04-21] MEDS: BUDESONIDE 0.5 MG/2 ML INHALATION SUSPENSION INH ×2 (07:59→20:56)
[2017-04-21] MEDS: FORMOTEROL FUMARATE 20 MCG/2 ML INHALATION SOLUTION (PERFOROMIST) INH ×2 (07:59→20:00)
[2017-04-21] MEDS: AZITHROMYCIN 250 MG TAB PO (08:36)
[2017-04-21] MEDS: guaiFENesin ER 600 MG TAB PO ×2 (08:36→22:56)
[2017-04-21] MEDS: APIXABAN 2.5 MG TAB (ELIQUIS) PO ×2 (08:37→22:58)
[2017-04-21] MEDS: predniSONE 20 MG TAB PO (08:37)
[2017-04-21] MEDS: VITAMIN D 1,000 INTERNATIONAL UNITS TABLET PO (08:37)
[2017-04-21] MEDS: NYSTATIN 500,000 U/5 ML SUSP UDC SS ×3 (11:29→22:59)
[2017-04-21] MEDS: CEFTRIAXONE SOD 1 GM in APPROPRIATE DILUENT 1 EA IV (11:29)
[2017-04-21] MEDS: cefTRIAXone SOD 1 GM VIAL (J0696) IM (12:12)
[2017-04-21] MEDS: RAMELTEON 8 MG TAB (ROZEREM) PO (22:56)
[2017-04-21] MEDS: traZODone 25MG PER 1/2 TABLET PO (22:56)
[2017-04-21] MEDS: TAMSULOSIN 0.4 MG CAP PO (22:59)
[2017-04-21] MEDS: PRAVASTATIN 20 MG TAB PO (22:59)
[2017-04-21] MEDS: FINASTERIDE 5 MG TAB PO (22:59)
[2017-04-22] MEDS: IPRATROPIUM 0.5MG/ALBUTEROL 2.5MG INH SOL UD 3ML (DUONEB)(J7620) NEB ×5 (02:00→20:00)
[2017-04-22] MEDS: LEVOTHYROXINE 25MCG TABLET (0.025MG) PO (05:59)
[2017-04-22] MEDS: VITAMIN D 1,000 INTERNATIONAL UNITS TABLET PO (08:25)
[2017-04-22] MEDS: guaiFENesin ER 600 MG TAB PO ×2 (08:25→21:37)
[2017-04-22] MEDS: APIXABAN 2.5 MG TAB (ELIQUIS) PO ×2 (08:25→21:35)
[2017-04-22] MEDS: NYSTATIN 500,000 U/5 ML SUSP UDC SS ×4 (08:26→21:35)
[2017-04-22] MEDS: predniSONE 20 MG TAB PO (08:26)
[2017-04-22] MEDS: FORMOTEROL FUMARATE 20 MCG/2 ML INHALATION SOLUTION (PERFOROMIST) INH ×2 (08:40→20:58)
[2017-04-22] MEDS: BUDESONIDE 0.5 MG/2 ML INHALATION SUSPENSION INH ×2 (08:40→20:58)
[2017-04-22 09:25] LABS: HEMATOCRIT 38.5 % (42.0-52.0); HEMOGLOBIN 12.7 g/dl (14.0-18.0); MEAN CORPUSCULAR HEMOGLOBIN 31.5 pg (27.0-33.0); MEAN CORPUSCULAR VOLUME 95.5 fl (80.0-96.0); RED BLOOD COUNT 4.03 10^6/uL (4.30-6.10); RED CELL DISTRIBUTION WIDTH 14.3 % (11.5-14.5); WHITE BLOOD COUNT 10.6 10^3/uL (4.0-10.0)
[2017-04-22 09:45] LABS: PLATELET COUNT, AUTOMATED 59 10^3/uL (150-450)
[2017-04-22 09:46] LABS: IMMATURE PLATELET FRACTION % 5.8 % (0.0-10.9)
[2017-04-22 10:06] LABS: ALBUMIN 2.4 GM/DL (3.2-5.2); ANION GAP 7 MEQ/L (8-16); BLOOD UREA NITROGEN 91 MG/DL (7-18); CALCIUM LEVEL 8.3 MG/DL (8.8-10.2); CARBON DIOXIDE LEVEL 29 MEQ/L (21-32); CHLORIDE LEVEL 110 MEQ/L (98-107); GLUCOSE, FASTING 167 MG/DL (83-110); PHOSPHORUS LEVEL 3.7 MG/DL (2.5-4.9); POTASSIUM SERUM 4.8 MEQ/L (3.5-5.1); SODIUM LEVEL 146 MEQ/L (136-145)
[2017-04-22 14:59] LABS: ABG BASE EXCESS -0.9 (-2.0-2.0); ABG HCO3 26.6 MEQ/L (22.0-26.0); ABG O2 SATURATION 99.2 % (95.0-99.0); ABG PARTIAL PRESSURE CO2 56.2 mmHg (35.0-45.0); ABG PARTIAL PRESSURE O2 149.3 mmHg (75.0-100.0); ABG STANDARD HCO3 23.8 MEQ/L (22.0-26.0); ABG TOTAL CO2 28.3 MEQ/L (23.0-31.0); ABG pH (ARTERIAL) 7.293 UNITS (7.350-7.450)
[2017-04-22] MEDS: MORPHINE 2 MG/ML 1ML SYRINGE IV ×3 (15:40→23:35)
[2017-04-22] MEDS: LORazepam 2 MG/ML VIAL (J2060) IV ×2 (18:33→23:57)
[2017-04-22] MEDS: TAMSULOSIN 0.4 MG CAP PO (21:35)
[2017-04-22] MEDS: RAMELTEON 8 MG TAB (ROZEREM) PO (21:36)
[2017-04-22] MEDS: PRAVASTATIN 20 MG TAB PO (21:37)
[2017-04-22] MEDS: FINASTERIDE 5 MG TAB PO (21:37)
[2017-04-22] MEDS: SCOPOLAMINE 1MG TRANSDERMAL PATCH TOP (22:51)
[2017-04-24] MEDS ORDERED: predniSONE 20 MG TAB PO (09:00)
[2017-04-27] MEDS ORDERED: predniSONE 10 MG TAB PO (09:00)
== END 2017-04-23 01:07 | disposition expired | DRG 308 ==
LOC: M PCU 04-14 12:05 → M MSPAV 04-16 14:43 → M ED 12:58 → M ED INP 19:28
DX: I48.91 Unspecified atrial fibrillation (principal); J18.9 Pneumonia, unspecified organism; G93.40 Encephalopathy, unspecified; J96.01 Acute respiratory failure with hypoxia; J96.02 Acute respiratory failure with hypercapnia; J44.1 Chronic obstructive pulmonary disease with (acute) exacerbation; N17.9 Acute kidney failure, unspecified; E87.2 Acidosis; B37.0 Candidal stomatitis; E87.1 Hypo-osmolality and hyponatremia; I13.0 Hypertensive heart and chronic kidney disease with heart failure and stage 1 through stage 4 chronic kidney disease, or unspecified chronic kidney disease; N18.3 Chronic kidney disease, stage 3 (moderate); I50.9 Heart failure, unspecified; E78.5 Hyperlipidemia, unspecified; E03.9 Hypothyroidism, unspecified; R91.8 Other nonspecific abnormal finding of lung field; N40.0 Benign prostatic hyperplasia without lower urinary tract symptoms; Z66 Do not resuscitate; Z87.891 Personal history of nicotine dependence; Z51.5 Encounter for palliative care; Z79.899 Other long term (current) drug therapy